=== PATIENT | female | born 1995 | race Caucasian/White ===

== ENCOUNTER 2022-02-18 19:00 | Emergency (ER) | payer OTHER ==
[2022-02-18 19:16] VITALS: BP 130/78; PULSE 115; RESP 20; TEMP 100.1; BMI 25.0
[2022-02-18] MEDS ORDERED: IBUPROFEN 600 MG TABLET (FP) PO ONE ×2 (20:25→20:36)
[2022-02-18] MEDS ORDERED: ACETAMINOPHEN 500 MG TABLET (FP) PO ONE (20:25)
[2022-02-18] MEDS ORDERED: ACETAMINOPHEN 500 MG TABLET (FP) ONE (20:37)
== END 2022-02-18 21:00 | disposition home or self-care (01) ==
LOC: JER 19:00
DX: J09.X2 Influenza due to identified novel influenza A virus with other respiratory manifestations (principal); R05.1 Acute cough; R50.9 Fever, unspecified; J02.9 Acute pharyngitis, unspecified
CPT/HCPCS: 0241U-QW; 99283-25

== ENCOUNTER 2022-02-19 16:55 | Emergency (ER) | payer OTHER ==
[2022-02-19 17:09] VITALS: RESP 18; BMI 25.0
[2022-02-19] MEDS ORDERED: ACETAMINOPHEN 650 MG/20.3 ML ORAL SOLUTION (CUPS) PO ONE (17:46)
[2022-02-19] MEDS ORDERED: IBUPROFEN 100 MG/5 ML UNIT DOSE CUPS PO ONE (17:46)
[2022-02-19] MEDS ORDERED: ONDANSETRON *ODT* 4 MG TABLET SL ONE (17:46)
[2022-02-19] MEDS ORDERED: ONDANSETRON 4 MG TABLET PO ONE (18:14)
[2022-02-19] MEDS ORDERED: IBUPROFEN 100 MG/5 ML UNIT DOSE CUPS ONE (18:14)
[2022-02-19] MEDS ORDERED: ONDANSETRON *ODT* 4 MG TABLET ONE (18:18)
[2022-02-19 19:31] VITALS: BP 115/72
[2022-02-19 20:52] VITALS: PULSE 129; TEMP 101
== END 2022-02-19 19:40 | disposition home or self-care (01) ==
LOC: JER 16:55
DX: J09.X2 Influenza due to identified novel influenza A virus with other respiratory manifestations (principal)
CPT/HCPCS: 99283-25; Q0162